=== PATIENT | female | born 1940 | race Caucasian/White ===

== ENCOUNTER 2021-02-26 12:00 | Inpatient (IN) | payer OTHER ==
[~2021-02-26] VITALS: Ht 157.5 cm; Wt 59.0 kg
[~2021-02-26 12:00] MED LIST: CLOP75TA15 PO; LEVO50TA PO; METF-440 PO; METO25TA6 PO; SIMV20TA2 PO
[2021-02-26 12:42] LABS: BASOPHILS # (AUTO) 0.1 K/uL (0.0-0.2); BASOPHILS % (AUTO) 0.4 % (0.0-2.0); EOSINOPHILS % (AUTO) 0.1 % (0.0-6.0); HEMATOCRIT 37 % (33-45); HEMOGLOBIN 11.8 g/dL (11.5-14.8); LYMPHOCYTES # (AUTO) 0.5 K/uL (0.8-4.8); LYMPHOCYTES % (AUTO) 3.5 % (20.0-44.0); MEAN CORPUSCULAR HGB CONC 32 g/dl (31.0-36.0); MEAN CORPUSCULAR VOLUME 80 fL (82-100); MONOCYTES # (AUTO) 0.5 K/uL (0.1-1.30); MONOCYTES % (AUTO) 3.3 % (2.0-12.0); NEUTROPHILS # (AUTO) 13.1 K/uL (1.8-8.9); NEUTROPHILS % (AUTO) 92.7 % (43.0-81.0); PLATELET COUNT (AUTO) 335 K/uL (150-450); RED BLOOD CELL COUNT(AUTO) 4.65 MIL/uL (4.0-5.2); WHITE BLOOD COUNT (AUTO) 14.1 K/uL (4.3-11.0)
[2021-02-26 12:52] LABS: ALANINE AMINOTRANSFERASE 139 U/L (12-78); ALBUMIN 3.2 g/dL (3.4-5.0); ALKALINE PHOSPHATASE 607 U/L (46-116); ASPARTATE AMINOTRANSFERASE 116 U/L (15-37); BILIRUBIN,DIRECT 0.2 mg/dL (0.0-0.2); BILIRUBIN,TOTAL 0.8 mg/dL (0.2-1.0); CARBON DIOXIDE 25 mmol/L (21-32); CHLORIDE 103 mmol/L (98-107); CREATININE 1.4 mg/dL (0.6-1.3); GLUCOSE 135 mg/dL (74-106); POTASSIUM 4.4 mmol/L (3.5-5.1); SODIUM SERUM 135 mmol/L (136-145); TOTAL PROTEIN, SERUM 7.8 g/dL (6.4-8.2); UREA NITROGEN, BLOOD 25 mg/dL (7-18)
--- NOTE | 2021-02-26 13:35 | NUR ---
THE PATIENT BIB C/O FEVER AND SORETHROAT. IN ROOM AIR AND DENIES SOB. RESPIRATION REGULAR AND UNLABORED. DENIES PAIN. WILL CONTINUE TO MONITOR THE PATIENT.
--- NOTE | 2021-02-26 13:36 | NUR ---
THE PATIENT STATED THAT SHE STILL DOES NOT FEEL LIKE URINATING. WILL TRY AGAIN LATER.
[2021-02-26 13:58] LABS: BILIRUBIN,URINE Negative (NEGATIVE); COLOR,URINE YELLOW (YELLOW); LEUKOCYTE ESTERASE ,URINE Negative (NEGATIVE); NITRITE, URINE Negative (NEGATIVE); PROTEIN,URINE >=300 mg/dl (NEGATIVE); UGLUCOSE Negative (NEGATIVE); UROBILINOGEN,URINE 0.2 EU/dL (0.2)
[2021-02-26 14:10] LABS: BACTERIA,URINE Rare /HPF (None Seen); RBC,URINE 0-2 /HPF (0-2); WBC,URINE 0-2 /HPF (0-3)
[2021-02-26 14:11] LABS: SQUAMOUS EPITHELIAL CELL,UR 0-2 /HPF (None Seen); YEAST,URINE Few /HPF (None Seen)
[2021-02-26] MEDS: CEFTRIAXONE 1GM BAG (ER ONLY) 1 GM/50 ML PIGGYBACK IV ONE ×2 (14:54→14:55)
[2021-02-26] MEDS ORDERED: CEFTRIAXONE 1GM BAG (ER ONLY) 50 ML IV ONE (14:57)
[2021-02-26] MEDS ORDERED: ALBUTEROL SULFATE 8 GM HFA.AER.AD IH PRN (16:00)
[2021-02-26] MEDS ORDERED: IV NS 0.9% 1,000 ML IV PRN ×2 (16:00→20:30)
[2021-02-26] MEDS ORDERED: ONDANSETRON HCL/PF 4 MG/2 ML VIAL IVP PRN (16:00)
[2021-02-26] MEDS ORDERED: ACETAMINOPHEN 325 MG TABLET PO PRN (16:00)
[2021-02-26] MEDS ORDERED: AZITHROMYCIN 500 MG in IV D5W 250 ML IV SCH (16:00)
[2021-02-26] MEDS ORDERED: CEFTRIAXONE 1 G in IV D5W 50 ML IV SCH (16:00)
[2021-02-26] MEDS ORDERED: INSULIN REGULAR, HUMAN 100 UNIT/ML 3 ML VIAL SQ PRN (16:30)
[2021-02-26] MEDS ORDERED: DEXTROSE 50%-WATER 50 ML DISP.SYRIN IV PRN ×2 (16:30→20:30)
[2021-02-26] MEDS ORDERED: METOPROLOL TARTRATE 25 MG TABLET PO SCH (17:00)
[2021-02-26] MEDS ORDERED: BLOOD SUGAR DIAGNOSTIC 1 EACH STRIP IN SCH (17:30)
--- NOTE | 2021-02-26 19:35 | NUR ---
ROOM 120
--- NOTE | 2021-02-26 19:42 | NUR ---
REPORT GIVEN TO JESÚS.
--- NOTE | 2021-02-26 19:49 | NUR ---
PT WAS TRANSFERRED TO THE FIRST FLOOR UNDER ACLS
[2021-02-26 20:00] VITALS: BP 110/44
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
[2021-02-26] MEDS: SIMVASTATIN 20 MG TABLET PO SCH (22:00)
[2021-02-26] MEDS ORDERED: SIMVASTATIN 20 MG TABLET PO SCH (22:00)
[2021-02-26] MEDS: BLOOD SUGAR DIAGNOSTIC 1 EACH STRIP IN SCH (22:55)
--- NOTE | 2021-02-27 01:42 | NUR ---
RN NOTE HIDA SCAN WAS CANCELLED EARLIER. SPOKE TO BAKERY MACHINE MECHANIC SUPERVISOR BILINGUAL ADMINISTRATIVE ASSISTANT SMITA IF WANT TO REORDER, BILINGUAL ADMINISTRATIVE ASSISTANT AGREED TO DO IN AM, PT TO REMAIN NPO. ORDER NOTED AND CARRIED OUT. CHARGE NURSE MADE AWARE.
--- NOTE | 2021-02-27 02:00 | NUR ---
RN NOTE NOTED IV ON RAC LEAKING, NEW LINE INSERTED ON RFA 20G, WITH GOOD BLOOD RETURN. FLUSHES WELL. CONTINUE ON IVF NS.
[2021-02-27 04:00] VITALS: BP 111/47
--- NOTE | 2021-02-27 06:45 | NUR ---
RN CLOSING NOTES PT ABLE TO MAKE NEEDS KNOWN. DENIES ANY PAIN, NO DISTRESS NOTED. CONTINUE ON IVFLUIDS OF NS AT 50ML/HR. NO SIGNS OF INFILTRATION NOTED. REMAIN AFEBRILE ALL SHIFT. WILL ENDORSE TO NEXT SHIFT NURSE FOR LYN.
[2021-02-27 07:06] LABS: BASOPHILS % (AUTO) 0.5 % (0.0-2.0); EOSINOPHILS % (AUTO) 1.5 % (0.0-6.0); HEMATOCRIT 31 % (33-45); LYMPHOCYTES # (AUTO) 1.3 K/uL (0.8-4.8); MEAN CORPUSCULAR HGB CONC 32 g/dl (31.0-36.0); MEAN CORPUSCULAR VOLUME 80 fL (82-100); MONOCYTES # (AUTO) 0.6 K/uL (0.1-1.30); MONOCYTES % (AUTO) 9.6 % (2.0-12.0); NEUTROPHILS # (AUTO) 4.3 K/uL (1.8-8.9); NEUTROPHILS % (AUTO) 68.4 % (43.0-81.0); PLATELET COUNT (AUTO) 264 K/uL (150-450); RED BLOOD CELL COUNT(AUTO) 3.88 MIL/uL (4.0-5.2); WHITE BLOOD COUNT (AUTO) 6.3 K/uL (4.3-11.0)
[2021-02-27 07:14] LABS: CALCIUM, SERUM 8.4 mg/dL (8.5-10.1); CREATININE 1.3 mg/dL (0.6-1.3); POTASSIUM 4.1 mmol/L (3.5-5.1)
[2021-02-27 07:20] LABS: ALBUMIN 2.5 g/dL (3.4-5.0); BILIRUBIN,TOTAL 0.4 mg/dL (0.2-1.0); TOTAL PROTEIN, SERUM 6.4 g/dL (6.4-8.2)
[2021-02-27 08:00] VITALS: BP 114/61
[2021-02-27] MEDS ORDERED: LISI40TA13 PO (08:14)
[2021-02-27] MEDS: BLOOD SUGAR DIAGNOSTIC 1 EACH STRIP IN SCH ×4 (08:14→21:15)
[2021-02-27] MEDS ORDERED: CLOPIDOGREL BISULFATE 75 MG TABLET PO SCH (09:00)
[2021-02-27] MEDS ORDERED: LEVOTHYROXINE SODIUM 50 MCG TABLET PO SCH (09:00)
[2021-02-27] MEDS: METOPROLOL TARTRATE 25 MG TABLET PO SCH ×2 (09:00→17:16)
[2021-02-27] MEDS: CLOPIDOGREL BISULFATE 75 MG TABLET PO SCH (09:00)
[2021-02-27] MEDS: LEVOTHYROXINE SODIUM 50 MCG TABLET PO SCH (09:00)
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
--- NOTE | 2021-02-27 10:15 | NUR ---
First part of nuclear medicine scan at this time. Tanvir Menjivar RN
--- NOTE | 2021-02-27 11:39 | NUR ---
Patient transport for MRI and second part of nuclear medicine scan after this. Tanvir Menjivar RN
[2021-02-27] MEDS ORDERED: MORPHINE SULFATE INJ 2 MG/ML DISP.SYRIN IV PRN (14:00)
[2021-02-27] MEDS: CEFTRIAXONE 1 G in IV D5W 50 ML IV SCH (14:14)
[2021-02-27 16:00] VITALS: BP 136/52
--- NOTE | 2021-02-27 16:00 | NUR ---
NM: JAKOBA SCAN WAS COMPLETED: TECH :RB
[2021-02-27] MEDS ORDERED: IV NS 0.9% 1,000 ML IV PRN (18:00)
--- NOTE | 2021-02-27 19:30 | NUR ---
RN NOTE RECEIVED PATIENT IN BED. A/OX4 NIUEAN SPEAKING,PATIENT IS ON OXYGEN 2L/MIN VIA NASAL CANNULA BUT KEEPS REMOVING IT, INFORMED HER OF IMPORTANCE, BUT PATIENT IS STABLE ON ROOM AIR. RESPIRATIONS ARE EVEN AND UNLABORED. NO S/S SOB NOTED. C/O OF EYE PAIN REQUEST TYLENOL. IN NO APPARENT DISTRESS. IV ACCESS IN RAC#18, RFA#20 PATENT AND SALINE LOCKED. BED IS LOW AND LOCKED, HOB ELEVATED IN SEMI FOWLERS, SIDE RAILS UP X2, CALL LIGHT WITHIN REACH. WILL CONTINUE TO MONITOR THROUGHOUT SHIFT.
[2021-02-27 20:00] VITALS: BP 152/70
[2021-02-27] MEDS: SIMVASTATIN 20 MG TABLET PO SCH (21:14)
[2021-02-27] MEDS: INSULIN REGULAR, HUMAN 100 UNIT/ML 3 ML VIAL SQ PRN (21:20)
--- NOTE | 2021-02-27 22:48 | NUR ---
RN NOTE INFORMED STOCK BROKER SUPERVISOR FLOR MATHUR RENTAL CLERK THAT PATIENT IS REQUESTING TYLENOL FOR PAIN IN EYE AND BACK. ORDER PLACED BY RENTAL CLERK, BUT ONCE VERIFIED BY OUTSIDE PHARMACY I ASKED PATIENT IF SHE STILL WOULD LIKE TYLENOL AND SHE STATED NO SHES OK SHE JUST NEEDED TO REPOSITION. WILL CONTINUE TO MONITOR THROUGHOUT SHIFT.
[2021-02-28 04:00] VITALS: BP 153/68
[2021-02-28] MEDS: ACETAMINOPHEN 325 MG TABLET PO PRN (05:28)
[2021-02-28 06:06] LABS: BASOPHILS % (AUTO) 0.8 % (0.0-2.0); EOSINOPHILS % (AUTO) 2.9 % (0.0-6.0); HEMATOCRIT 32 % (33-45); HEMOGLOBIN 10.5 g/dL (11.5-14.8); LYMPHOCYTES # (AUTO) 1.4 K/uL (0.8-4.8); LYMPHOCYTES % (AUTO) 27.1 % (20.0-44.0); MEAN CORPUSCULAR HGB CONC 33 g/dl (31.0-36.0); MEAN CORPUSCULAR VOLUME 79 fL (82-100); MONOCYTES # (AUTO) 0.7 K/uL (0.1-1.30); MONOCYTES % (AUTO) 13.4 % (2.0-12.0); NEUTROPHILS # (AUTO) 2.9 K/uL (1.8-8.9); NEUTROPHILS % (AUTO) 55.8 % (43.0-81.0); PLATELET COUNT (AUTO) 289 K/uL (150-450); RED BLOOD CELL COUNT(AUTO) 4.02 MIL/uL (4.0-5.2); WHITE BLOOD COUNT (AUTO) 5.1 K/uL (4.3-11.0)
[2021-02-28 06:53] LABS: ALBUMIN 2.6 g/dL (3.4-5.0); BILIRUBIN,DIRECT 0.1 mg/dL (0.0-0.2); BILIRUBIN,TOTAL 0.3 mg/dL (0.2-1.0); TOTAL PROTEIN, SERUM 6.7 g/dL (6.4-8.2)
--- NOTE | 2021-02-28 07:29 | NUR ---
RN NOTE PATIENT RESTING IN BED. A/OX4, ON OXYGEN 2L/MIN VIA NASAL CANNULA. NO RESP DISTRESS. TYLENOL FOR PAIN. NO DISTRESS. IV ACCESS MAINTAINED IN RFA#20 RUNNING NS @100ML. BED REMAINS LOW AND LOCKED, HOB ELEVATED IN SEMI FOWLERS, SIDE RAILS UP X2, CALL LIGHT WITHIN REACH. WILL ENDORSE TO ONCOMING SHIFT.
--- NOTE | 2021-02-28 07:57 | NUR ---
MS/RN OPENING NOTE RECEIVED PATIENT RESTING IN BED. A/OX4, ON OXYGEN 2L/MIN VIA NASAL CANNULA. NO RESP DISTRESS. IV ACCESS IN RFA#20 INTACT WITH A RUNNING NS @100ML. BED REMAINS LOW AND LOCKED, HOB ELEVATED IN SEMI FOWLERS, SIDE RAILS UP X2, CALL LIGHT WITHIN REACH. WILL CONTINUE TO MONITOR PATIENT.
[2021-02-28] MEDS: BLOOD SUGAR DIAGNOSTIC 1 EACH STRIP IN SCH ×4 (08:57→21:32)
[2021-02-28] MEDS: AMLODIPINE BESYLATE 5 MG TABLET PO SCH (09:48)
[2021-02-28] MEDS: METOPROLOL TARTRATE 25 MG TABLET PO SCH ×2 (09:49→17:50)
[2021-02-28] MEDS: CLOPIDOGREL BISULFATE 75 MG TABLET PO SCH (09:49)
[2021-02-28] MEDS: LEVOTHYROXINE SODIUM 50 MCG TABLET PO SCH (09:49)
[2021-02-28 12:23] VITALS: BP 150/70
[2021-02-28] MEDS ORDERED: AMLO-212 PO (13:19)
[2021-02-28] MEDS ORDERED: AMOX-430 PO (13:19)
[2021-02-28] MEDS: INSULIN REGULAR, HUMAN 100 UNIT/ML 3 ML VIAL SQ PRN ×2 (13:54→21:41)
[2021-02-28] MEDS: CEFTRIAXONE 1 G in IV D5W 50 ML IV SCH (15:17)
--- NOTE | 2021-02-28 16:31 | NUR ---
message left to daughter regarding discharge,left voice mail,cm made aware unable to reach family member. will continue to follow up.
--- NOTE | 2021-02-28 19:30 | NUR ---
RN NOTE RECEIVED PATIENT IN BED. A/OX4. ON OXYGEN 2L/MIN VIA [employer] CANNULA. PATIENT KEEPS REMOVING NASAL CANNULA. ABLE TO TOLERATE ROOM AIR.. RESPIRATIONS ARE EVEN AND UNLABORED. NO S/S SOB NOTED. NO C/O PAIN AT THIS TIME. IN NO APPARENT DISTRESS. IV ACCESS IN RFA#20 PATENT AND SALINE LOCKED. BED IS LOW AND LOCKED, HOB ELEVATED IN SEMI FOWLERS, SIDE RAILS UP X2, CALL LIGHT WITHIN REACH. WILL CONTINUE TO MONITOR THROUGHOUT SHIFT.
--- NOTE | 2021-02-28 19:31 | NUR ---
MS/RN CLOSING NOTE PATIENT RESTING IN BED. A/OX4, ON OXYGEN 2L/MIN VIA NASAL CANNULA. NO RESP DISTRESS. IV ACCESS IN RFA#20 INTACT WITH A RUNNING NS @100ML. BED REMAINS LOW AND LOCKED, HOB ELEVATED IN SEMI FOWLERS, SIDE RAILS UP X2, CALL LIGHT WITHIN REACH. WILL ENDORSE TO THE NEXT SHIFT.
[2021-02-28 20:00] VITALS: BP 183/71
--- NOTE | 2021-02-28 20:10 | NUR ---
RN NOTE CALLED DAUGHTER OF PATIENT TERE ALLISON AT [phone] TO INFORM HER THAT MOTHER IS READY TO BE PICKED UP FOR DISCHARGE. LEFT A MESSAGE WITH CALL BACK NUMBER. AWAITING CALL.
[2021-02-28] MEDS ORDERED: hydrALAZINE HCL 10 MG TABLET PO PRN (21:00)
--- NOTE | 2021-02-28 21:03 | NUR ---
RN NOTE INFORMED SKILLS INSTRUCTOR FLOR MATHUR NP THAT PATIENT BP IS 187/82 HR 56. LAST BP MED GIVEN LOPRESSOR 25MG AT 1750, PATIENT IS ALSO ON DAILY NORVASC 5MG. ORACLE DISTRIBUTION CONSULTANT STATED HE WILL PUT PRN HYDRALAZINE ORDER. AWAITING ORDER TO BE CARRIED OUT.
[2021-02-28] MEDS: SIMVASTATIN 20 MG TABLET PO SCH (21:32)
[2021-03-01] VITALS: BP 138/70
[2021-03-01] MEDS: ACETAMINOPHEN 325 MG TABLET PO PRN (00:53)
[2021-03-01 04:00] VITALS: BP 145/71
--- NOTE | 2021-03-01 07:07 | NUR ---
RN NOTE PATIENT RESTING IN BED. A/OX4. ON AND OFF OXYGEN 2L/MIN VIA [employer] CANNULA. NO RESP DISTRESS. PAIN MANAGED WITH TYLENOL. NO DISTRESS. IV IN RFA#20. BED REMAINS LOW AND LOCKED, HOB ELEVATED IN SEMI FOWLERS, SIDE RAILS UP X2, CALL LIGHT WITHIN REACH. PATIENT IS READY FOR DISCHARGE. WILL INFORM INCOMING RN TO CALL DAUGHTER FOR TRANSPORTATION.
[2021-03-01] MEDS: BLOOD SUGAR DIAGNOSTIC 1 EACH STRIP IN SCH ×2 (07:30→12:02)
[2021-03-01] MEDS: CLOPIDOGREL BISULFATE 75 MG TABLET PO SCH (09:04)
[2021-03-01] MEDS: LEVOTHYROXINE SODIUM 50 MCG TABLET PO SCH (09:05)
[2021-03-01] MEDS: AMLODIPINE BESYLATE 5 MG TABLET PO SCH (09:05)
[2021-03-01 09:06] VITALS: BP 156/73
[2021-03-01] MEDS: METOPROLOL TARTRATE 25 MG TABLET PO SCH (09:06)
[2021-03-01] MEDS ORDERED: AMOX/CLAVULANATE 875 MG TABLET PO SCH (11:00)
--- NOTE | 2021-03-01 11:24 | NUR ---
still unable to locate family to pickup patient,md and cm aware.,will continue to follow up.
--- NOTE | 2021-03-01 12:10 | NUR ---
RN NOTES CALLED TERE(DAUGHTER) AND LEAVE A MESSAGE TWICE, TO DISTRIBUTION CENTER MANAGER THE PATIENT, NOBODY WAS ANSWERING. WILL CONTINUE TO FOLLOW UP.
--- NOTE | 2021-03-01 13:25 | NUR ---
RN NOTES PATIENT IS ALERT AND ORIENTED X3. PATIENT IS ON ROOM AIR SATURATION 98%. PATIENT IN NO APPARENT RESPIRATORY DISTRESS NOTED. NO COMPLAINED OF PAIN NOTED AT THIS TIME. SEEN AND EXAMINED BY MD WITH ORDERS MADE AND CARRIED OUT. ALL DUE MEDICATIONS WAS GIVEN. DISCHARGED INSTRUCTION WAS GIVEN TO THE DAUGHTER AND VERBALIZED UNDERSTANDING. PATIENT LEFT THE HOSPITAL IN MEDICALLY STABLE CONDITION CREDIT CONTROL OFFICER BY TERE (DAUGHTER) VIA PRIVATE CAR.
[2021-03-02] MEDS ORDERED: AMLODIPINE BESYLATE 5 MG TABLET PO SCH (09:00)
== END 2021-03-01 15:09 | disposition home or self-care (01) | DRG 871 ==
LOC: ER 12:00 → MEDSG1 20:26
PROVIDERS: ADMIT Nurse Practitioner Acute Care; ATTEND Internal Medicine
DX: A41.9 Sepsis, unspecified organism (principal); N17.0 Acute kidney failure with tubular necrosis; J98.11 Atelectasis; K83.8 Other specified diseases of biliary tract; E03.9 Hypothyroidism, unspecified; I10 Essential (primary) hypertension; E11.9 Type 2 diabetes mellitus without complications; E78.5 Hyperlipidemia, unspecified; Z20.822 Contact with and (suspected) exposure to COVID-19; Z86.73 Personal history of transient ischemic attack (TIA), and cerebral infarction without residual deficits; M20.42 Other hammer toe(s) (acquired), left foot; M20.41 Other hammer toe(s) (acquired), right foot; E11.51 Type 2 diabetes mellitus with diabetic peripheral angiopathy without gangrene; L98.499 Non-pressure chronic ulcer of skin of other sites with unspecified severity; I70.25 Atherosclerosis of native arteries of other extremities with ulceration; Z79.84 Long term (current) use of oral hypoglycemic drugs
CPT/HCPCS: 36415; 71045-TC; 74181-TC; 76705-TC; 78226; 80048-TC; 80053-TC; 80076-TC; 81001; 82728-TC; 82962-TC; 83605-TC; 83615-TC; 83690-TC; 84484-TC; 85025-TC; 85378-TC; 85730-TC; 87040-TC; 87081-TC; 87086-TC; A9537; C9803; G0378; J0696; J1815; J7030; J7060; U0003